=== PATIENT | male | born 2000 | race Two or more races ===

== ENCOUNTER 2025-02-24 15:01 | Inpatient (IN) | payer MEDICAID, OTHER ==
[~2025-02-24] VITALS: Ht 177.8 cm; Wt 105.1 kg
--- NOTE | 2025-02-24 15:30 | ED.PDOC ---
History of Present Illness HPI Comments 24-year-old male with no significant past medical history brought in by private car, referred by Dr. Capellan for evaluation of fatigue, abdominal pain, nausea and vomiting. Patient was found to be tachycardic in the 130s on EKG performed at urgent care, as well as showing ketonuria. Patient states they tested him for diabetes at the urgent Care, and he was told he was not diabetic. Patient notes extreme fatigue over the past 3 weeks, then nausea and vomiting that started about a week ago associated with mid abdominal pain radiating to the left flank. He states he has been unable to keep any food or liquids down. He does note diarrhea several days ago after taking magnesium for constipation. Denies fever or dysuria. Chief Complaint: Chest Pain Time Seen by MD: 15:16 Reviewed Notes: Medications, Allergies Allergies: Coded Allergies: NO KNOWN ALLERGIES (Unverified , 02/24/25) Information Source: Patient Mode of Arrival: Ambulatory Severity: Moderate Timing: Days Duration: Since onset Prehospital treatment: None Past Medical History PAST MEDICAL HISTORY: Denies Surgical History: Denies all surgeries Family History Family History: Reviewed,noncontributory to illness Social History Smoker: Non-Smoker Alcohol: Rarely Drugs: Denies Drug Use Lives In: Home Constitutional: denies: chills, diaphoresis, fatigue, fever, malaise, sweats, weakness, others EENTM: denies: blurred vision, double vision, ear bleeding, ear discharge, ear drainage, ear pain, ear ringing, eye pain, eye redness, hearing loss, mouth pain, mouth swelling, nasal discharge, nose bleeding, nose congestion, nose pain, photophobia, tearing, throat pain, throat swelling, voice changes, others Respiratory: denies: cough, hemoptysis, orthopnea, SOB at rest, shortness of breath, SOB with excertion, stridor, wheezing, others Cardiovascular: reports: chest pain; denies: dizzy spells, diaphoresis, Dyspnea on exertion, edema, irregular heart beat, left arm pain, lightheadedness, palpitations, PND, syncope, others Gastrointestinal: reports: abdominal pain; denies: abdomen distended, blood streaked bowels, constipated, diarrhea, dysphagia, difficulty swallowing, hematemesis, melena, nausea, poor appetite, poor fluid intake, rectal bleeding, rectal pain, vomiting, others Genitourinary: denies: burning, dysuria, flank pain, frequency, hematuria, incontinence, penile discharge, penile sore, pain, testicle pain, testicle swelling, urgency, others Neurological: denies: dizziness, fainting, headache, left sided numbness, left sided weakness, numbness, paresthesia, pre-existing deficit, right sided numbness, right sided weakness, seizure, speech problems, tingling, tremors, weakness, others Musculoskeletal: denies: back pain, gout, joint pain, joint swelling, muscle pain, muscle stiffness, neck pain, others Integumetry: denies: bruises, change in color, change in hair/nails, dryness, laceration, lesions, lumps, rash, wounds, others Allergic/Immunocompromised: denies: Difficulty Healing, Frequent Infections, Hives, Itching, others Hematologic/Lymphatic: denies: anemia, blood clots, easy bleeding, easy bruising, swollen glands, others Endocrine: denies: excessive hunger, excessive sweating, excessive thirst, excessive urination, flushing, intolerance to cold, intolerance to heat, unexpla ined weight gain, unexplained weight loss, others Psychiatric: denies: anxiety, bipolar disorder, depression, hopeless, panic disorder, schizophrenia, sleepless, suicidal, others All Other Systems: Reviewed and Negative Physical Exam General Appearance: Mild Distress HEENT: Other (Pupils and face symmetric. Dry mucous membranes.) Neck: Full Range of Motion, Normal Inspection Respiratory: Lungs Clear, No Accessory Muscle Use, No Respiratory Distress, Normal Breath Sounds Cardiovascular: No Edema, No JVD, Tachycardia Breast Exam: Deferred Gastrointestinal: Epigastric, LUQ, Tenderness Genitalia: Deferred Pelvic: Deferred Rectal: Deferred Extremities: Normal inspection, Normal range of motion, Non-tender, No pedal edema Neurologic: Alert (Oriented x4), Normal Affect, Normal Mood, Other (Ambulatory) Cerebellar Function: NOT DONE Reflexes: NOT DONE Skin: Dry, Pallor, Warm Lymphatic: NOT DONE Was a procedure done? Was a procedure done?: No EKG EKG : Comments Sinus tach, rate 137, normal intervals, normal axis, normal QRS, nonspecific T changes. Differential Dx Considerations may include: Dehydration, sepsis, electrolyte imbalance, enteritis, diverticular disease, colitis, pancreatitis, UTI, other biliary tract disease, DKA, among others X-Ray, Labs, Meds, VS Vital Signs Date Time Temp Pulse Resp B/P (MAP) Pulse Ox O2 Delivery O2 Flow Rate FiO2 02/24/25 20:00 130 02/24/25 18:45 94 Room Air* 0 21 02/24/25 18:41 122 20 96 Room Air* 0 21 02/24/25 18:00 98.7 124 20 127/80 (96) 98 98.7 02/24/25 15:08 137 02/24/25 15:03 98.3 155 20 95/74 95 98.3 Lab Test 02/24/25 19:55 02/24/25 19:40 02/24/25 18:57 02/24/25 18:29 Range/Units POC Glucose 378 H 544 *H 70-106 mg/dl Urine Color Colorless Yellow Urine Clarity Clear Clear Urine pH 5.0 5.0-9.0 Urine Specific Bessie 1.028 1.001-1.035 Urine Protein Negative Negative Urine Ketones 4+ H Negative Urine Blood Negative Negative /uL Urine Nitrite Negative Negative Urine Bilirubin Negative Negative Urine Urobilinogen Normal Negative mg/dL Urine Leukocyte Esterase Negative Negative /uL Urine RBC <1 0 - 3 /hpf Urine Microscopic WBC 0-3 /HPF Urine Squamous Epithelial Cells Few <5 /hpf Urine Bacteria None seen None Seen /hpf Urine Glucose 4+ H Normal mg/dL Blood Gas Specimen Type Arterial Blood Gas Sample Site Left brachial Blood Gas Patient Temperature 37.0 Arterial Blood Date Drawn [id number] Arterial Blood pH 7.267 L 7.350-7.450 Arterial Blood Partial Pressure CO2 15.4 *L 35.0-48.0 mmHg Arterial Blood Partial Pressure O2 99.0 83.0-108.0 mmHg Arterial Blood HCO3 6.9 L 21.0-28.0 mmol/L Arterial Blood Oxygen Saturation 97.5 94.0-98.0 % Arterial Blood Base Excess -16.8 L -2.0-3.0 mmol/L Arterial Blood Oxyhemoglobin 96.5 94.0-98.0 % Arterial Blood Carboxyhemoglobin 0.2 L 0.5-1.5 % Arterial Blood Methemoglobin 0.8 0.0-1.5 % Miles Test N/a Blood Gas Total Hemoglobin 17.40 13.5-17.5 g/dL Blood Gas Modality Room air FiO2 % 21.0 Blood Gas Critical Value Read Back Yes Blood Gas Notified Whom Blood Gas Notified Time [id number] Blood Gas Notified By Test 02/24/25 18:25 02/24/25 15:55 Range/Units Sodium Level 132 L 132 L 136-145 mmol/L Potassium Level 4.2 4.2 3.5-5.1 mmol/L Chloride Level 92 L 91 L 98-107 mmol/L Carbon Dioxide Level < 10 *L < 10 *L 20-31 mmol/L Anion Gap 30.99631 H 31.74279 H 5-15 Blood Urea Nitrogen 10 10 9-23 mg/dL Creatinine 2.04 H 2.02 H 0.700-1.30 mg/dL Glomerular Filtration Rate Calc 46 46 >90 mL/min BUN/Creatinine Ratio 4.9 L 5.0 L 10.0-20.0 Serum Glucose 549 *H 549 *H 74-106 mg/dL Lactic Acid Level 2.9 *H 3.0 *H 0.4-2.0 mmol/L Calcium Level 9.8 10.0 8.7-10.4 mg/dL Phosphorus Level 7.5 H 2.4-5.1 mg/dL Magnesium Level 2.4 1.6-2.6 mg/dL Troponin I High Sensitivity < 3 L < 3 L </=54 ng/L Beta-Hydroxybutyric Acid > 4.500 H < 0.4 mmol/L White Blood Count 16.3 H 4.4-10.8 10^3/uL Red Blood Count 6.06 H 4.5-5.90 10^6/uL Hemoglobin 18.0 H 13.5-17.5 g/dL Hematocrit 54.5 H 41.0-53.0 % Mean Corpuscular Volume 89.9 80.0-100.0 fL Mean Corpuscular Hemoglobin 29.8 28.0-32.0 pg Mean Corpuscular Hemoglobin Concent 33.1 32.0-36.0 g/dL Red Cell Distribution Width 14.6 H 11.8-14.3 % Platelet Count 203 140-450 10^3/uL Mean Platelet Volume 12.5 H 6.9-10.8 fL Neutrophils (%) (Auto) 91.7 H 37.0-80.0 % Lymphocytes (%) (Auto) 4.7 L 10.0-50.0 % Monocytes (%) (Auto) 3.1 0.0-12.0 % Eosinophils (%) (Auto) 0.0 0.0-7.0 % Basophils (%) (Auto) 0.5 0.0-2.0 % Neutrophils # (Auto) 14.9 H 1.6-8.6 10 ^3/uL Lymphocytes # (Auto) 0.8 0.4-5.4 10 ^3/uL Monocytes # (Auto) 0.5 0-1.3 10 ^3/uL Eosinophils # (Auto) 0 0-0.8 10 ^3/uL Basophils # (Auto) 0.1 0-0.2 10 ^3/uL Nucleated Red Blood Cells 0.1 % Prothrombin Time 10.3 9.3-11.8 sec Prothrombin Time INR 0.97 0.9-1.15 Activated Partial Thromboplast Time 27.6 24.5-34.5 SEC Serum Osmolality 332 H 278-298 mOsm/kg Total Bilirubin 0.7 0.2-1.0 mg/dL Aspartate Amino Transferase (AST) 9 L 13-40 U/L Alanine Aminotransferase (ALT) 14 7-40 U/L Alkaline Phosphatase 179 H 46-116 U/L B-Type Natriuretic Peptide 9.71 0-100 pg/mL Total Protein 9.6 H 5.7-8.2 g/dL Albumin 5.4 H 3.2-4.8 g/dL Lipase 37 12-53 U/L Current Medications Medications (Trade) Dose Ordered Sig/Lamont Route Start Time Stop Time Status Last Admin Lactated Ringer's 2,200 ml @ 2,200 mls/hr ONCE ONCE IV 02/24/25 15:30 02/24/25 16:29 DC 02/24/25 16:16 Ondansetron HCl (Zofran) 4 mg ONCE ONCE IV 02/24/25 15:30 02/24/25 15:31 DC 02/24/25 16:13 Pantoprazole Sodium (Protonix) 40 mg ONCE ONCE IV 02/24/25 15:30 02/24/25 15:31 DC 02/24/25 16:14 Sodium Chloride 1,000 ml @ 500 mls/hr Q2H IV 02/24/25 18:45 02/24/25 22:44 8/21/25 20:00 Insulin Human (Reg)/Sodium Chloride 100 ml @ 0.5 mls/hr Q24H IV 02/24/25 18:45 02/24/25 18:55 Diagnostic Test (Pha) (Accu-Chek Comfort Curve T) 1 strip Q90MIN 02/24/25 19:30 02/24/25 21:02 Insulin Human Regular (InsuLIN R) 10 units ONCE ONCE IV 02/24/25 18:45 02/24/25 18:46 DC 02/24/25 18:55 X-Ray, Labs, Meds, VS Comment 24-year-old male with no significant past medical history brought in by private car, referred by Dr. Sloans for evaluation of fatigue, abdominal pain, nausea and vomiting Vitals remarkable for heart rate 155, initial BP 95/74 Exam remarkable for tachycardia, dry mucous membranes and epigastric and left- sided abdominal tenderness Rhythm strip independently interpreted by me: Sinus tach, rate thirty-seven, no ectopy. Chest x-ray IMPRESSION: 1. No acute cardiopulmonary disease. Impression: No acute noncontrast CT abnormality of the abdomen / pelvis. Distal esophageal wall thickening, fever to represent esophagus secondary to emesis. Please correlate with history. Diffuse hepatic steatosis. CBC remarkable for WBC 16.3, hemoglobin 18, hematocrit 54.5, CMP remarkable for sodium 132, chloride 92, CO2 less than 10, creatinine 2.04, glucose 549, anion gap 31, beta hydroxybutyrate greater than 4.5, lactate 3, lipase normal, UA 4+ ketones and glucose Patient treated with the following in the ED: 30 cc/kilogram LR bolus, cefepime 2 g IV, Zofran 4 mg IV, morphine 4 mg IV, regular insulin 10 units IV, started on the DKA protocol On re-evaluation, heart rate is 122, blood pressure 118/82, oxygen saturation 98% on room air, blood glucose is down to be 78, and lactate is down to 2.9 Plan is to admit the patient for treatment of DKA Time of 1ST Reevaluation: 15:41 Reevaluation 1ST: Unchanged Patient Education/Counseling: Diagnosis, Treatment Family Education/Counseling: No Family Present SEPSIS Sepsis Screen Date sepsis recognized/suspect: Feb 24, 2025 Time Sepsis recognized/suspect: 1503 Recent Procedure: No On Antibiotic Therapy: No Respiratory Rate >20: No Heart Rate >90: Yes Temp<36 C (96.8 F) or >38.3 C: No SBP <90 or MAP <65 mmHG: No New Acute Mental Status Change: No Is the patient on CPAP, BIPAP,: No SEPSIS EXCLUSION NOTE: Sepsis reassessment focused exam completed. Date: 02/24/25 Time 21:13 Physician Orders Electrocardigram (02/24/25 15:02) Chest Portable (02/24/25 15:16) Accucheck (02/24/25 15:16) Blood Culture (02/24/25 15:16) Cefepime 1gm/ 50ml (Maxipime 1gm/50ml) (02/24/25 22:00) Notify Md If Map <65 Or Bp<90 (02/24/25 15:16) If Map<65 Start Vasopressor (02/24/25 15:16) Sepsis Reassesment After Fluid (02/24/25 16:16) Ct Ab Pel Wo Con-No Oral Or Iv (02/24/25 15:16) Abg W/ Co-Ox (02/24/25 18:35) Insulin Drip Protocol (02/24/25 ) Sodium Chloride 0.9% (02/24/25 18:45) Sodium Chloride 0.9% (02/24/25 22:45) Sodium Chloride 0.9% (02/25/25 00:45) Insulin Drip 100 Unit/100ml (Myxredlin 1 (02/24/25 18:45) Dextrose 50% Syringe (02/24/25 18:45) Glucose Blood (Accu-Chek Comfort Curve T (02/24/25 19:30) Basic Metabolic Panel (02/25/25 00:35) Basic Metabolic Panel (02/25/25 06:35) Basic Metabolic Panel (02/25/25 12:35) Neurological Assessment (02/24/25 18:35) Vs/Hemodynamics .PER UNIT PROTOCOL (02/24/25 18:35) Insulin Lantus (Glargine) (Lantus) (02/25/25 10:00) Vital Signs Date Time Temp Pulse Resp B/P (MAP) Pulse Ox O2 Delivery O2 Flow Rate FiO2 02/24/25 20:00 130 02/24/25 18:45 94 Room Air* 0 21 02/24/25 18:41 122 20 96 Room Air* 0 21 02/24/25 18:00 98.7 124 20 127/80 (96) 98 98.7 02/24/25 15:08 137 02/24/25 15:03 98.3 155 20 95/74 95 98.3 Laboratory Tests Test 02/24/25 15:55 02/24/25 18:25 Lactic Acid Level 3.0 mmol/L (0.4-2.0) *H 2.9 mmol/L (0.4-2.0) *H White Blood Count 16.3 10^3/uL (4.4-10.8) H Medications Medications Dose Ordered Sig/Lamont Route Start Time Stop Time Status Last Admin Dose Admin Diagnostic Test (Pha) 1 strip Q90MIN 02/24/25 19:30 02/24/25 21:02 Insulin Human (Reg)/Sodium Chloride 100 ml @ 0.5 mls/hr Q24H IV 02/24/25 18:45 02/24/25 18:55 Insulin Human Regular 10 units ONCE ONCE IV 02/24/25 18:45 02/24/25 18:46 DC 02/24/25 18:55 Lactated Ringer's 2,200 ml @ 2,200 mls/hr ONCE ONCE IV 02/24/25 15:30 02/24/25 16:29 DC 02/24/25 16:16 Ondansetron HCl 4 mg ONCE ONCE IV 02/24/25 15:30 02/24/25 15:31 DC 02/24/25 16:13 Pantoprazole Sodium 40 mg ONCE ONCE IV 02/24/25 15:30 02/24/25 15:31 DC 02/24/25 16:14 Sodium Chloride 1,000 ml @ 500 mls/hr Q2H IV 02/24/25 18:45 02/24/25 22:44 02/24/25 20:00 Departure 1 Departure Time of Disposition: 18:30 Impression: Primary Impression: Diabetes mellitus, new onset Additional Impressions: DKA (diabetic ketoacidosis) Sepsis Disposition: ADMITTED INPATIENT [facility]mit to: [facility] Condition: Guarded Critical Care Note Critical Care Time?: Yes (55 min-critical care time only) Critical care comment: Critical care time including multiple bedside re-evaluations, review of lab and imaging studies, and discussion of the case with the admitting provider. Patient is high risk for metabolic and/or hemodynamic decompensation. Stability Stability form required: No Heart Score Heart Score: Heart Score Response (Comments) Value History N/A 0 EKG N/A 0 Age N/A 0 Risk Factors N/A 0 Troponin N/A 0 Total 0 I personally scribed for PATSY VILLANUEVA MD ([email or web address]) on 02/24/25 at 15:31. Electronically submitted by Kushal Figueredo ([email or web address]). PATSY VILLANUEVA MD Feb 24, 2025 15:30
--- NOTE | 2025-02-24 15:59 | DVH ---
CHEST RADIOGRAPH Indication: tachy Technique: Single frontal view of the chest was obtained Comparison: None FINDINGS: Lines and Tubes: None Lungs: No focal consolidation. Pleura: No effusion. No pneumothorax. Cardiomediastinal contours: Unremarkable Bones: No acute osseous abnormality. IMPRESSION: 1. No acute cardiopulmonary disease.
--- NOTE | 2025-02-24 16:10 | DVH ---
CLINICAL HISTORY: diffuse abd pain, not tolerating po TECHNIQUE: CT of the abdomen and pelvis was performed without IV contrast. This exam was performed ac cording to our departmental dose optimization program. Up-to-date CT equipment and radiation dose red uction techniques are utilized as appropriate. CTDI 15.4 DLP 951.8 COMPARISON: None FINDINGS: Abdomen/Pelvis: The spleen, pancreas, adrenal glands, kidneys, gallbladder, bladder, and prostate gland are grossly u nremarkable. There is diffuse hepatic steatosis. The abdominal aorta is normal in course and caliber. There are no significant atherosclerotic calcifi cations. There is no free intraperitoneal air or fluid. There is no enlarged abdominal pelvic lymph node. There is no bowel wall thickening or dilatation. The appendix is normal. Other: The imaged lower thorax demonstrates distal esophageal wall thickening unremarkable. No acute osseous abnormality is evident. Impression: No acute noncontrast CT abnormality of the abdomen / pelvis. Distal esophageal wall thickening, fever to represent esophagus secondary to emesis. Please correlate with history. Diffuse hepatic steatosis.
[2025-02-24 16:11] LABS: Hemoglobin 18.0 g/dL (13.5-17.5); Mean Corpuscular Hemoglobin 29.8 pg (28.0-32.0)
[2025-02-24 16:13] LABS: Hematocrit 54.5 % (41.0-53.0); Mean Corpuscular Volume 89.9 fL (80.0-100.0); Nucleated Red Blood Cells % 0.1 %
[2025-02-24] MEDS: ONDANSETRON HCL 4 MG/2 ML VIAL IV ONE (16:13)
[2025-02-24] MEDS: PANTOPRAZOLE 40 MG/10 ML VIAL INJ IV ONE (16:14)
[2025-02-24] MEDS: LACTATED RINGER'S 2,200 ML IV ONE (16:16)
[2025-02-24 16:24] LABS: INR 0.97 (0.9-1.15); Partial Thromboplastin Time 27.6 SEC (24.5-34.5); Prothrombin Time 10.3 sec (9.3-11.8)
[2025-02-24 16:28] LABS: Alanine Aminotransferase 14 U/L (7-40); Anion Gap 31.00001 (5-15); BUN/Creatinine Ratio 5.0 (10.0-20.0); Bilirubin, Total 0.7 mg/dL (0.2-1.0); Blood Urea Nitrogen 10 mg/dL (9-23); Calcium 10.0 mg/dL (8.7-10.4); Lipase 37 U/L (12-53); Potassium 4.2 mmol/L (3.5-5.1)
[2025-02-24 16:30] LABS: Chloride 91 mmol/L (98-107); Sodium 132 mmol/L (136-145)
[2025-02-24 16:31] LABS: Albumin 5.4 g/dL (3.2-4.8); Alkaline Phosphatase 179 U/L (46-116); Carbon Dioxide < 10 mmol/L (20-31); Glucose 549 mg/dL (74-106); Total Protein 9.6 g/dL (5.7-8.2)
[2025-02-24 16:32] LABS: Lactic Acid w/Reflex 3.0 mmol/L (0.4-2.0)
[2025-02-24 18:41] VITALS: PULSE 122; RESP 20; O2SAT 96
[2025-02-24] MEDS ORDERED: DEXTROSE (50%) 50ML SYRG IV PRN (18:45)
[2025-02-24] MEDS: INSULIN LANTUS (GLARGINE) 1 /0.01ml (100units/ml) SC ONE (18:48)
[2025-02-24] MEDS: InsuLIN REG 1unit/0.01ml Soln (100units/ml) IV ONE (18:55)
[2025-02-24] MEDS: SODIUM CHLORIDE 0.9% 1,000 ML IV SCH ×2 (18:55→22:45)
[2025-02-24] MEDS: INSULIN DRIP 100 UNIT/100ML 100 ML IV SCH (18:55)
[2025-02-24 18:57] LABS: Magnesium 2.4 mg/dL (1.6-2.6)
[2025-02-24 19:01] LABS: Potassium 4.2 mmol/L (3.5-5.1)
[2025-02-24 19:02] LABS: Anion Gap 30.00001 (5-15); Calcium 9.8 mg/dL (8.7-10.4)
[2025-02-24 19:07] LABS: BUN/Creatinine Ratio 4.9 (10.0-20.0); Blood Urea Nitrogen 10 mg/dL (9-23)
[2025-02-24 19:08] LABS: Chloride 92 mmol/L (98-107); Sodium 132 mmol/L (136-145)
[2025-02-24 19:09] LABS: Carbon Dioxide < 10 mmol/L (20-31); Glucose 549 mg/dL (74-106)
[2025-02-24 19:20] LABS: Base Excess -16.8 mmol/L (-2.0-3.0)
[2025-02-24] MEDS: ACCU-CHEK COMFORT CURVE STRIP VI SCH (19:59)
[2025-02-24 20:23] LABS: Urine Protein, UAD Negative (Negative)
[2025-02-24] MEDS: CEFEPIME 1GM/ 50ML 50 ML IV SCH (22:00)
[2025-02-25] VITALS (44 sets, daily range): BP systolic 108–139; BP diastolic 62–80; PULSE 69–105; RESP 10–22; TEMP 97.7–98.5; O2SAT 94–98
[2025-02-25] MEDS ORDERED: ONDANSETRON HCL 4 MG/2 ML VIAL IV PRN
[2025-02-25] MEDS: SODIUM CHLORIDE 0.9% 1,000 ML IV SCH (00:51)
[2025-02-25 00:53] LABS: Potassium 3.9 mmol/L (3.5-5.1); Sodium 141 mmol/L (136-145)
[2025-02-25 00:54] LABS: Anion Gap 23 (5-15)
[2025-02-25 00:55] LABS: Calcium 8.9 mg/dL (8.7-10.4)
[2025-02-25 00:59] LABS: BUN/Creatinine Ratio 5.0 (10.0-20.0); Carbon Dioxide 11 mmol/L (20-31); Chloride 107 mmol/L (98-107)
[2025-02-25 01:06] LABS: Blood Urea Nitrogen 8 mg/dL (9-23); Glucose 247 mg/dL (74-106)
--- NOTE | 2025-02-25 01:20 | DVHHPRES ---
History of Present Illness Resident Creating Document: LINDA MENDEZ RESIDENT History of Present Illness This is a 24-year-old male with past medical history of hypertension and asthma noncompliant on his medications, newly diagnosed type 1 diabetes mellitus. Patient presented to the ED with chief complain of extreme fatigue, an acute epigastric pain associated with dry mouth now and vomit. Patient states that for the past day he started feeling more fatigued than usual and he started developing acute abdominal pain in the epigastric region radiating up to the chest associated with thirsty, dry mouth, nausea and vomiting. Upon admission blood glucose was 549 with an anion gap of 31 any carbon dioxide of less than 10. ABG showed a pH of 7.26, pCO2 of 15.4, HC03 of 6.9 and PO2 of 99 consistent with severe metabolic acidosis with elevated anion gap consistent with DKA. Patient was started on IV fluids, insulin drip, potassium replacement and e lectrolyte monitoring cessation. Patient will be admitted to ICU for further assessment and management. Past medical history: Hypertension, asthma, no medication compliance Home medications: Noncompliant Surgical history: Social history: Denies cigarette smoking but admitted marijuana use and stated that quit years ago, occasional alcohol intake Cardiovascular: HTN Pulmonary: Asthma Endocrine: Diabetes Past Surgical History: None Family History: None Smoke: No ALCOHOL: occassional Drugs: Marijuana Lives: with Family Domestic Violence: Neg Review of Systems Constitutional: Yes: Weakness, Malaise; No: Fever, Chills, Sweats, Other Eyes: No: Pain, Vision change, Conjunctivae inflammation, Eyelid inflammation, Other, Redness ENT: No: Ear pain, Ear discharge, Nose pain, Nose discharge, Nose congestion, Mouth pain, Mouth swelling, Throat pain, Throat swelling, Other Respiratory: No: Cough, Dry, Shortness of breath, SOB with excertion, Wheezing, Hemoptysis, Pleuritic Pain, Sputum, Wheezing, Other Cardiovascular: No: Chest Pain, Palpitations, Orthopnea, Paroxysmal Noc. Dyspnea, Edema, Lt Headedness, Other Gastrointestinal: Nausea, Vomiting, Abdominal Pain Genitourinary: No Dysuria, No Frequency, No Incontinence, No Hematuria, No Retention, No Other Musculoskeletal: No: other, neck pain, shoulder pain, arm pain, back pain, hand pain, leg pain, foot pain Skin: No: Rash, Lesions, Jaundice, Bruising, Other Neurological: Weakness; No: Numbness, Incoordination, Change in speech, Confusion, Seizures, Other Allergies: Coded Allergies: NO KNOWN ALLERGIES (Unverified , 02/24/25) Medications Current Medications Medications Dose Ordered Sig/Lamont Route Start Time Stop Time Status Last Admin Dose Admin Cefepime HCl 50 ml @ 12.5 mls/hr Q8HR IV 02/24/25 22:00 Sodium Chloride 1,000 ml @ 250 mls/hr Q4H IV 02/24/25 22:45 02/25/25 00:44 02/24/25 22:45 250 MLS/HR Sodium Chloride 1,000 ml @ 150 mls/hr Q6H40M IV 02/25/25 00:45 Insulin Human (Reg)/Sodium Chloride 100 ml @ 0.5 mls/hr Q24H IV 02/24/25 18:45 02/24/25 18:55 6 MLS/HR Dextrose 50 ml UD PRN IV 02/24/25 18:45 Diagnostic Test (Pha) 1 strip Q90MIN 02/24/25 19:30 02/24/25 22:30 1 STRIP Insulin Glargine 15 units DAILY SC 02/25/25 10:00 Acetaminophen 650 mg Q6HP PRN PO 02/25/25 00:00 UNV Acetaminophen/ Hydrocodone Bitart 1 tab Q4HP PRN PO 02/25/25 00:00 UNV Ondansetron HCl 4 mg Q4HP PRN IV 02/25/25 00:00 UNV Exam Vital Signs Vital Signs Date Time Temp Pulse Resp B/P (MAP) Pulse Ox O2 Delivery O2 Flow Rate FiO2 02/24/25 20:00 119 20 118/82 (94) 98 02/24/25 18:45 Room Air* 0 21 02/24/25 18:00 98.7 98.7 General Appearance: Alert, Oriented X3, Cooperative, mild distress HEENT: Atraumatic, PERRLA, EOMI, Other (Dehydrated) Respiratory: Clear to auscultation, Normal air movement Cardiovascular: Regular rate (Sinus tachycardia), Normal S1, Normal S2, No murmurs Abdominal: Normal bowel sounds, Soft, Other (There is mild tenderness to pa lpation in the epigastric region) Extremities: No clubbing, No cyanosis, No edema, Normal pulses, No tende rness/swelling Skin: No rashes, No breakdown, No significant lesion Neuro: Normal gait, Normal speech, Strength at 5/5 X4 ext, Normal tone, Sensation intact, Cranial nerves 3-12 NL, Reflexes 2+ Psych/Mental Status: Mental status NL, Mood NL Labs/Xrays Labs Test 02/24/25 22:51 02/24/25 19:40 02/24/25 18:57 02/24/25 18:25 Range/Units POC Glucose 259 H 70-106 mg/dl Urine Color Colorless Yellow Urine Clarity Clear Clear Urine pH 5.0 5.0-9.0 Urine Specific [place] 1.028 1.001-1.035 Urine Protein Negative Negative Urine Ketones 4+ H Negative Urine Blood Negative Negative /uL Urine Nitrite Negative Negative Urine Bilirubin Negative Negative Urine Urobilinogen Normal Negative mg/dL Urine Leukocyte Esterase Negative Negative /uL Urine RBC <1 0 - 3 /hpf Urine Microscopic WBC 0-3 /HPF Urine Squamous Epithelial Cells Few <5 /hpf Urine Bacteria None seen None Seen /hpf Urine Glucose 4+ H Normal mg/dL Blood Gas Specimen Type Arterial Blood Gas Sample Site Left brachial Blood Gas Patient Temperature 37.0 Arterial Blood Date Drawn [id number] Arterial Blood pH 7.267 L 7.350-7.450 Arterial Blood Partial Pressure CO2 15.4 *L 35.0-48.0 mmHg Arterial Blood Partial Pressure O2 99.0 83.0-108.0 mmHg Arterial Blood HCO3 6.9 L 21.0-28.0 mmol/L Arterial Blood Oxygen Saturation 97.5 94.0-98.0 % Arterial Blood Base Excess -16.8 L -2.0-3.0 mmol/L Arterial Blood Oxyhemoglobin 96.5 94.0-98.0 % Arterial Blood Carboxyhemoglobin 0.2 L 0.5-1.5 % Arterial Blood Methemoglobin 0.8 0.0-1.5 % Miles Test N/a Blood Gas Total Hemoglobin 17.40 13.5-17.5 g/dL Blood Gas Modality Room air FiO2 % 21.0 Blood Gas Critical Value Read Back Yes Blood Gas Notified Whom Blood Gas Notified Time [id number] Blood Gas Notified By Sodium Level 132 L 136-145 mmol/L Potassium Level 4.2 3.5-5.1 mmol/L Chloride Level 92 L 98-107 mmol/L Carbon Dioxide Level < 10 *L 20-31 mmol/L Anion Gap 30.99042 H 5-15 Blood Urea Nitrogen 10 9-23 mg/dL Creatinine 2.04 H 0.700-1.30 mg/dL Glomerular Filtration Rate Calc 46 >90 mL/min BUN/Creatinine Ratio 4.9 L 10.0-20.0 Serum Glucose 549 *H 74-106 mg/dL Lactic Acid Level 2.9 *H 0.4-2.0 mmol/L Calcium Level 9.8 8.7-10.4 mg/dL Phosphorus Level 7.5 H 2.4-5.1 mg/dL Magnesium Level 2.4 1.6-2.6 mg/dL Troponin I High Sensitivity < 3 L </=54 ng/L Beta-Hydroxybutyric Acid > 4.500 H < 0.4 mmol/L Test 02/24/25 15:55 Range/Units White Blood Count 16.3 H 4.4-10.8 10^3/uL Red Blood Count 6.06 H 4.5-5.90 10^6/uL Hemoglobin 18.0 H 13.5-17.5 g/dL Hematocrit 54.5 H 41.0-53.0 % Mean Corpuscular Volume 89.9 80.0-100.0 fL Mean Corpuscular Hemoglobin 29.8 28.0-32.0 pg Mean Corpuscular Hemoglobin Concent 33.1 32.0-36.0 g/dL Red Cell Distribution Width 14.6 H 11.8-14.3 % Platelet Count 203 140-450 10^3/uL Mean Platelet Volume 12.5 H 6.9-10.8 fL Neutrophils (%) (Auto) 91.7 H 37.0-80.0 % Lymphocytes (%) (Auto) 4.7 L 10.0-50.0 % Monocytes (%) (Auto) 3.1 0.0-12.0 % Eosinophils (%) (Auto) 0.0 0.0-7.0 % Basophils (%) (Auto) 0.5 0.0-2.0 % Neutrophils # (Auto) 14.9 H 1.6-8.6 10 ^3/uL Lymphocytes # (Auto) 0.8 0.4-5.4 10 ^3/uL Monocytes # (Auto) 0.5 0-1.3 10 ^3/uL Eosinophils # (Auto) 0 0-0.8 10 ^3/uL Basophils # (Auto) 0.1 0-0.2 10 ^3/uL Nucleated Red Blood Cells 0.1 % Prothrombin Time 10.3 9.3-11.8 sec Prothrombin Time INR 0.97 0.9-1.15 Activated Partial Thromboplast Time 27.6 24.5-34.5 SEC Serum Osmolality 332 H 278-298 mOsm/kg Total Bilirubin 0.7 0.2-1.0 mg/dL Aspartate Amino Transferase (AST) 9 L 13-40 U/L Alanine Aminotransferase (ALT) 14 7-40 U/L Alkaline Phosphatase 179 H 46-116 U/L B-Type Natriuretic Peptide 9.71 0-100 pg/mL Total Protein 9.6 H 5.7-8.2 g/dL Albumin 5.4 H 3.2-4.8 g/dL Lipase 37 12-53 U/L SEPSIS Sepsis Screen Date sepsis recognized/suspect: Feb 24, 2025 Time Sepsis recognized/suspect: 1842 Recent Procedure: No On Antibiotic Therapy: No Respiratory Rate >20: No Heart Rate >90: No Temp<36 C (96.8 F) or >38.3 C: No SBP <90 or MAP <65 mmHG: No New Acute Mental Status Change: No Is the patient on CPAP, BIPAP,: No Physician Orders Abg W/ Co-Ox (02/24/25 18:35) Insulin Drip Protocol (02/24/25 ) Sodium Chloride 0.9% (02/24/25 22:45) Sodium Chloride 0.9% (02/25/25 00:45) Insulin Drip 100 Unit/100ml (Myxredlin 1 (02/24/25 18:45) Dextrose 50% Syringe (02/24/25 18:45) Glucose Blood (Accu-Chek Comfort Curve T (02/24/25 19:30) Basic Metabolic Panel (02/25/25 00:35) Basic Metabolic Panel (02/25/25 06:35) Basic Metabolic Panel (02/25/25 12:35) Neurological Assessment (02/24/25 18:35) Vs/Hemodynamics .PER UNIT PROTOCOL (02/24/25 18:35) Insulin Lantus (Glargine) (Lantus) (02/25/25 10:00) Admit (02/24/25 23:54) Code Status (02/24/25:54) Vital Signs .PER UNIT PROTOCOL (02/24/25 23:54) Review Orders With Adm. (02/24/25 23:54) Encourage Activity As Tolerate (02/24/25 23:54) Npo (Nothing By Mouth) Diet (02/25/25 Breakfast) Acetaminophen Tablet (Tylenol Tablet) (02/25/25 00:00) Notify Md Of Changes From Base (02/24/25 23:54) Advance Directive (02/24/25 23:54) Basic Metabolic Panel (02/24/25:54) Urinalysis (02/24/25:54) Complete Blood Count (02/24/25:54) Lipid Panel (02/24/25 23:54) Patient Condition (02/24/25 23:54) Allergies (02/24/25 23:54) Hydrocodone-Acet 5/325mg Tab ([place] 5/32 (02/25/25 00:00) Ondansetron Hcl (Zofran) (02/25/25 00:00) Drug Screen (02/24/25 23:54) Hemoglobin A1c (02/24/25 23:54) Potassium (02/24/25 23:58) Potassium Chl 20meq/100ml (02/25/25 00:00) Vital Signs Date Time Temp Pulse Resp B/P (MAP) Pulse Ox O2 Delivery O2 Flow Rate FiO2 02/24/25 20:00 119 20 118/82 (94) 98 02/24/25 20:00 130 02/24/25 18:45 94 Room Air* 0 21 02/24/25 18:41 122 20 96 Room Air* 0 21 02/24/25 18:00 98.7 124 20 127/80 (96) 98 98.7 Laboratory Tests Test 02/24/25 15:55 02/24/25 18:25 Lactic Acid Level 3.0 mmol/L (0.4-2.0) *H 2.9 mmol/L (0.4-2.0) *H White Blood Count 16.3 10^3/uL (4.4-10.8) H Medications Medications Dose Ordered Sig/Lamont Route Start Time Stop Time Status Last Admin Dose Admin Diagnostic Test (Pha) 1 strip Q90MIN 02/24/25 19:30 02/24/25 22:30 1 STRIP Insulin Human (Reg)/Sodium Chloride 100 ml @ 0.5 mls/hr Q24H IV 02/24/25 18:45 02/24/25 18:55 6 MLS/HR Insulin Human Regular 10 units ONCE ONCE IV 02/24/25 18:45 02/24/25 18:46 DC 02/24/25 18:55 10 UNITS Lactated Ringer's 2,200 ml @ 2,200 mls/hr ONCE ONCE IV 02/24/25 15:30 02/24/25 16:29 DC 02/24/25 16:16 2,200 MLS/HR Ondansetron HCl 4 mg ONCE ONCE IV 02/24/25 15:30 02/24/25 15:31 DC 02/24/25 16:13 4 MG Pantoprazole Sodium 40 mg ONCE ONCE IV 02/24/25 15:30 02/24/25 15:31 DC 02/24/25 16:14 40 MG Sodium Chloride 1,000 ml @ 250 mls/hr Q4H IV 02/24/25 22:45 02/25/25 00:44 02/24/25 22:45 250 MLS/HR Sodium Chloride 1,000 ml @ 500 mls/hr Q2H IV 02/24/25 18:45 02/24/25 22:44 DC 02/24/25 20:00 500 MLS/HR Assessment/Plan Assessment/Plan Assessment/plan Acute DKA Newly diagnosed type 1 diabetes with complicated acute DKA Severe metabolic acidosis with elevated anion gap due to above History of hypertension History of asthma Plan -admit patient to ICU/[facility] due to acute DKA -on admission patient had a blood glucose of 549 with an anion gap of 31 any carbon dioxide of less than 10. ABG showed a pH of 7.26, pCO2 of 15.4, HC03 of 6.9 and PO2 of 99 consistent with severe metabolic acidosis with elevated anion gap. -patient was started on IV fluids -patient was started on insulin drip -potassium replacement with pertinent electrolyte monitoring -we will switch IV fluids to D5 W/0.45% once blood glucose drops to the 200s if anion gap still elevated -patient received IV antibiotics in the ED -monitor patient vitals closely Goals of care discussed with the patient at bedside, full code Plan discussed with Dr. Bonilla Plan discussed with: Patient My Orders Orders - LINDA MENDEZ Procedure Category Date Status Time Admit ADMIT 02/24/25 Transmitted 23:54 Code Status CODE 02/24/25 Transmitted 23:54 Vital Signs [facility] 02/24/25 In Process 23:54 Review Orders With JERRI 02/24/25 In Process Adm.Md 23:54 Encourage Activity As JERRI 02/24/25 In Process Tolerate 23:54 Npo (Nothing By DIET 02/25/25 Transmitted Mouth) Diet Breakfast Acetaminophen Tablet PHA 02/25/25 Logged (Tylenol Tablet) 00:00 Notify Of Changes [facility] 02/24/25 In Process From Base 23:54 Advance Directive [facility] 02/24/25 In Process 23:54 Basic Metabolic Panel LAB 02/24/25 Logged 23:54 Urinalysis LAB 02/24/25 Logged 23:54 Complete Blood Count LAB 02/24/25 Logged 23:54 Lipid Panel LAB 02/24/25 Logged 23:54 Patient Condition ORDERS 02/24/25 Transmitted 23:54 Allergies [facility] 02/24/25 In Process 23:54 Hydrocodone-Acet PHA 02/25/25 Logged 5/325mg Tab ([place] 00:00 Ondansetron Hcl PHA 02/25/25 Logged (Zofran) 00:00 Drug Screen LAB 02/24/25 Logged 23:54 Hemoglobin A1c LAB 02/24/25 Logged 23:54 Potassium LAB 02/24/25 Logged 23:58 Potassium Chl PHA 02/25/25 Logged 20meq/100ml 00:00 Date of Service: Feb 25, 2025 Billing Provider: LINDA MENDEZ Common Visit Codes: 77221-QFUTITR INP/OBS CARE (HIGH) Secondary Visit Codes: 90425-[id number] CARE PLAN 30 MINUTES LINDA MENDEZ Feb 25, 2025 01:20
[2025-02-25] MEDS: D5W/SOD CHL 0.45% 1,000 ML IV ONE (03:07)
[2025-02-25] MEDS: HYDROcodone-ACET 5/325MG TAB PO PRN (03:10)
[2025-02-25 03:25] LABS: Alanine Aminotransferase 11 U/L (7-40); Albumin 4.4 g/dL (3.2-4.8); Anion Gap 20 (5-15); BUN/Creatinine Ratio 4.2 (10.0-20.0); Bilirubin, Total 0.6 mg/dL (0.2-1.0); Potassium 3.7 mmol/L (3.5-5.1); Sodium 142 mmol/L (136-145); Total Protein 7.7 g/dL (5.7-8.2)
[2025-02-25 03:39] LABS: Alkaline Phosphatase 132 U/L (46-116); Blood Urea Nitrogen 6 mg/dL (9-23); Calcium 8.7 mg/dL (8.7-10.4); Carbon Dioxide 12 mmol/L (20-31); Chloride 110 mmol/L (98-107); Glucose 194 mg/dL (74-106)
--- NOTE | 2025-02-25 06:43 | ECG ---
[facility] Test Date: 2025-02-24 Test Time: 15:08:33 Pat Name: APOLINAR RODRIGUEZ Department: ED Room: 0298 Gender: M Media Director: ER : 2000 Requested By: PATSY PELAYO Order Number: [id number] Reading MD: Boyd Newman Measurements Intervals [place] Rate: 137 P: 88 MA: 136 QRS: 141 QRSD: 84 T: 23 QT: 297 QTc: 449 Interpretive Statements Sinus tachycardia Left posterior fascicular block Electronically Signed On 03-01-2025 14:23:04 PDT by Boyd Newman Please click the below link to view image of tracing.
[2025-02-25] MEDS: POTASSIUM CHL 20MEQ/100ML 100 ML IV SCH ×2 (06:45)
[2025-02-25 06:56] LABS: Hematocrit 45.9 % (41.0-53.0); Hemoglobin 15.5 g/dL (13.5-17.5); Mean Corpuscular Hemoglobin 29.7 pg (28.0-32.0); Mean Corpuscular Volume 87.8 fL (80.0-100.0); Nucleated Red Blood Cells % 0.1 %
[2025-02-25 06:59] LABS: Anion Gap 20 (5-15); Potassium 3.8 mmol/L (3.5-5.1); Sodium 141 mmol/L (136-145)
[2025-02-25 07:01] LABS: Calcium 9.5 mg/dL (8.7-10.4)
[2025-02-25 07:02] LABS: Carbon Dioxide 13 mmol/L (20-31); Chloride 108 mmol/L (98-107)
[2025-02-25 07:06] LABS: BUN/Creatinine Ratio 4.0 (10.0-20.0)
[2025-02-25 07:10] LABS: Blood Urea Nitrogen 6 mg/dL (9-23); Cholesterol 344 mg/dL (< 200); Glucose 232 mg/dL (74-106); HDL Cholesterol 32 mg/dL (40-59); Triglycerides 693 mg/dL (< 150)
[2025-02-25 08:32] LABS: Potassium 4.2 mmol/L (3.5-5.1); Sodium 141 mmol/L (136-145)
[2025-02-25 08:33] LABS: Anion Gap 21 (5-15); Calcium 9.6 mg/dL (8.7-10.4)
[2025-02-25 08:36] LABS: Carbon Dioxide 12 mmol/L (20-31); Chloride 108 mmol/L (98-107)
[2025-02-25 08:38] LABS: BUN/Creatinine Ratio 6.3 (10.0-20.0)
[2025-02-25 08:44] LABS: Blood Urea Nitrogen 9 mg/dL (9-23); Glucose 231 mg/dL (74-106)
[2025-02-25] MEDS: INSULIN LANTUS (GLARGINE) 1 /0.01ml (100units/ml) SC SCH (10:42)
[2025-02-25] MEDS: D5W/SOD CHL 0.45% 1,000 ML IV SCH (11:15)
--- NOTE | 2025-02-25 11:45 | DVHPNRES ---
Progress Note Date Seen: Feb 25, 2025 Resident Creating Document: JJ ORNELAS RESIDENT Medical Necessity Reason Pt with a Central, PICC or Fol: No Subjective Review of Systems Ángel Guido is a 24-year-old male with past medical history of hypertension and asthma noncompliant on his medications, newly diagnosed type 1 diabetes mellitus. Patient presented to the ED with chief complain of extreme fatigue, an acute epigastric pain associated with dry mouth now and vomit. Patient reported he has been having fatigue for last 2 months, feeling more dehydrated, more thirsty but over the past 2 weeks the fatigue has been worsened. Patient states that for the past day he started feeling more fatigued than usual and he started developing acute abdominal pain in the epigastric region radiating up to the chest associated with thirsty, dry mouth, nausea and vomiting. Upon admission blood glucose was 549 with an anion gap of 31 any carbon dioxide of less than 10. ABG showed a pH of 7.26, pCO2 of 15.4, HC03 of 6.9 and PO2 of 99 consistent with severe metabolic acidosis with elevated anion gap consistent with DKA. Patient was started on IV fluids, insulin drip, potassium replacement and electrolyte monitoring cessation. PMH: Childhood asthma PSH: None Family history: Noncontributory Social history: Lives at home. Social drinking but denies alcohol, smoking other drug abuse. Allergies: No known allergies Home medications: None Patient seen and examined at the bedside. Patient reported improvement in his fatigue and other symptoms since admission, reported no new complaints except mild tiredness at this time. Overnight events reviewed. Continuously monitor lab. Blood cultures negative. Objective vital signs Vital Sign Date Time Temp Pulse Resp B/P (MAP) Pulse Ox O2 Delivery O2 Flow Rate FiO2 02/25/25 11:00 84 13 115/71 (86) 97 02/25/25 10:00 Room Air* 0 21 02/25/25 09:50 97.9 97.9 Total Intake and Output 02/24/25 02/24/25 02/25/25 15:00 23:00 07:00 Intake Total 4210 ml 210 ml Output Total 700 ml Balance 3510 ml 210 ml medications Current Medications Medications Dose Ordered Sig/Lamont Route Start Time Stop Time Status Last Admin Dose Admin Cefepime HCl 50 ml @ 12.5 mls/hr Q8HR IV 02/24/25 22:00 02/25/25 06:15 12.5 MLS/HR Insulin Human (Reg)/Sodium Chloride 100 ml @ 0.5 mls/hr Q24H IV 02/24/25 18:45 02/24/25 18:55 6 MLS/HR Dextrose 50 ml UD PRN IV 02/24/25 18:45 Diagnostic Test (Pha) 1 strip Q90MIN 02/24/25 19:30 02/25/25 10:43 1 STRIP Insulin Glargine 15 units DAILY SC 02/25/25 10:00 02/25/25 10:42 15 UNITS Acetaminophen 650 mg Q6HP PRN PO 02/25/25 00:00 Acetaminophen/ Hydrocodone Bitart 1 tab Q4HP PRN PO 02/25/25 00:00 02/25/25 08:08 1 TAB Ondansetron HCl 4 mg Q4HP PRN IV 02/25/25 00:00 Dextrose/Sodium Chloride 1,000 ml @ 150 mls/hr Q6H40M IV 02/25/25 11:15 UNV Examination Pt is lying on bed General Appearance: Alert, Oriented X3, Cooperative, Not in acute distress HEENT: Atraumatic, Mucous membranes dry Respiratory: Clear to auscultation, Normal air movement, No added sounds Cardiovascular: Regular rate, Normal S1, Normal S2, No murmurs Abdominal: Active bowel sounds, Soft, no distention, no tenderness Extremities: No edema, Normal pulses, No tenderness/swelling Skin: No Significant rash, except past surgical scars Neuro: Normal speech, sensorimotor deficits none Psych/Mental Status: Mental status NL, Mood NL Nurse was there as urogynecology physician during examination laboratory and microbiology Laboratory Tests 02/25/25 05:38 Test 02/25/25 05:38 Range/Units Serum Glucose 231 H 74-106 mg/dL Labs and/or images reviewed: Labs reviewed by me, Image(s) reviewed by me Problem List/Assessment/Plan Problem List/Assessment/Plan CRM ARCH[facility] # ? Hypovolemic shock likely from dehydration-resolving -given 2 bags of LR -switched to D5W half NS 150 mL/hour # Dyslipidemia -healthy lifestyle modifications RS # acute hypercapnic respiratory failure-improved # Hx of Asthma -monitor Respironics GI/Liver # intractable nausea and vomiting likely from DKA -given 2 bags of LR -switched to D5W half NS 150 mL/hour # Diffuse hepatic steatosis.-evident on CT abdominal pelvis /Kidney # BARBARA likely due to VMN -monitor lab -avoid nephrotoxic agents -given 2 bags of LR -switched to D5W half NS 150 mL/hour Endo/Metabolic # Severe dehydration from DKA # DKA # Newly diagnosed type 1 diabetes with complicated acute DKA # Severe AG metabolic acidosis # Hypokalemia 2/2 above # Pseudohyponatremia -ICU status -HB A1c more than 14 -ABG findings pH of 7.26, pCO2 of 15.4, HC03 of 6.9 and PO2 of 99 -patient was started on IV fluids, -switched to D5W half NS 150 mL/hour -patient was started on insulin drip -potassium replacement with pertinent electrolyte monitoring -repeat BMP q.6 hours MSK Heme-Onc # Reactive leukocytosis from DKA/dehydration--monitor lab for now Drip Insulin Drip GI PPX: Protonix VTE ppx: Lovenox Diet: Npo for now Goals of care addressed with the patient for more than 27 minutes: Full code status Critical care time spent more than 113 minutes Case discussed with Dr. Murrieta regarding insulin drip and transition. Plan discussed with: Patient, Other (rn) My Orders My Orders Orders - JJ ORNELAS RESIDENT Procedure Category Date Status Time D5w/Sod Chl 0.45% PHA 02/25/25 In Process (D5w 1/2ns) 11:15 Drug Screen LAB 02/25/25 Logged 11:28 Pantoprazole PHA 02/25/25 Logged (Protonix) 11:45 Enoxaparin Sodium PHA 02/26/25 Logged (Lovenox) 10:00 Enoxaparin Sodium PHA 02/25/25 Logged (Lovenox) 11:45 JJ ORNELAS RESIDENT Feb 25, 2025 11:45
[2025-02-25 13:25] LABS: Chloride 109 mmol/L (98-107); Potassium 4.0 mmol/L (3.5-5.1); Sodium 143 mmol/L (136-145)
[2025-02-25 13:26] LABS: Anion Gap 16 (5-15); Calcium 9.3 mg/dL (8.7-10.4)
[2025-02-25 13:27] LABS: Carbon Dioxide 18 mmol/L (20-31)
[2025-02-25 13:32] LABS: BUN/Creatinine Ratio 4.7 (10.0-20.0)
[2025-02-25 13:35] LABS: Blood Urea Nitrogen 6 mg/dL (9-23); Glucose 231 mg/dL (74-106)
[2025-02-25] MEDS: ENOXAPARIN SOD 40 MG/0.4 ML SYRINGE SC ONE (13:50)
[2025-02-25] MEDS: PANTOPRAZOLE 40 MG/10 ML VIAL INJ IV SCH (13:50)
[2025-02-25] MEDS: ACETAMINOPHEN 325 MG TAB PO PRN (13:55)
[2025-02-25 19:07] LABS: Sodium 145 mmol/L (136-145)
[2025-02-25 19:08] LABS: Anion Gap 17 (5-15); Calcium 9.4 mg/dL (8.7-10.4); Carbon Dioxide 20 mmol/L (20-31)
[2025-02-25 19:13] LABS: BUN/Creatinine Ratio 4.2 (10.0-20.0)
[2025-02-25 19:20] LABS: Blood Urea Nitrogen 5 mg/dL (9-23); Chloride 108 mmol/L (98-107); Glucose 173 mg/dL (74-106); Potassium 3.1 mmol/L (3.5-5.1)
[2025-02-26] VITALS (24 sets, daily range): BP systolic 111–146; BP diastolic 66–87; PULSE 70–107; RESP 9–19; TEMP 98.1–98.6; O2SAT 96–99
[2025-02-26 01:09] LABS: Chloride 107 mmol/L (98-107); Sodium 144 mmol/L (136-145)
[2025-02-26 01:10] LABS: Anion Gap 17 (5-15); Calcium 9.0 mg/dL (8.7-10.4)
[2025-02-26 01:12] LABS: Carbon Dioxide 20 mmol/L (20-31); Potassium 3.0 mmol/L (3.5-5.1)
[2025-02-26 01:23] LABS: BUN/Creatinine Ratio 4.0 (10.0-20.0); Blood Urea Nitrogen < 5 mg/dL (9-23); Glucose 193 mg/dL (74-106)
[2025-02-26] MEDS: D5W/SOD CHL 0.45%/KCL 20MEQ 1,000 ML IV SCH (02:10)
[2025-02-26] MEDS: POTASSIUM CHL 20MEQ/100ML 100 ML IV SCH ×3 (02:10→21:10)
[2025-02-26] MEDS: INSULIN DRIP 100 UNIT/100ML 100 ML IV SCH ×4 (02:23→12:19)
[2025-02-26] MEDS ORDERED: DEXTROSE (50%) 50ML SYRG IV PRN ×3 (04:15→17:15)
[2025-02-26] MEDS ORDERED: ACCU-CHEK COMFORT CURVE STRIP VI SCH (04:30)
[2025-02-26 08:58] LABS: Hematocrit 47.2 % (41.0-53.0); Hemoglobin 15.8 g/dL (13.5-17.5); Mean Corpuscular Hemoglobin 29.9 pg (28.0-32.0); Mean Corpuscular Volume 89.1 fL (80.0-100.0); Nucleated Red Blood Cells % 0.1 %
[2025-02-26] MEDS: ENOXAPARIN SOD 40 MG/0.4 ML SYRINGE SC SCH (09:06)
[2025-02-26 09:10] LABS: Anion Gap 14 (5-15); Calcium 9.4 mg/dL (8.7-10.4); Carbon Dioxide 23 mmol/L (20-31)
[2025-02-26 09:11] LABS: Chloride 108 mmol/L (98-107); Potassium 2.9 mmol/L (3.5-5.1); Sodium 145 mmol/L (136-145)
[2025-02-26 09:23] LABS: BUN/Creatinine Ratio 4.3 (10.0-20.0); Blood Urea Nitrogen < 5 mg/dL (9-23); Glucose 112 mg/dL (74-106)
[2025-02-26] MEDS: POTASSIUM CHL 20MEQ/100ML 400 ML IV ONE (10:10)
[2025-02-26 12:07] LABS: Anion Gap 14 (5-15); Calcium 9.3 mg/dL (8.7-10.4); Carbon Dioxide 22 mmol/L (20-31)
[2025-02-26 12:08] LABS: Chloride 109 mmol/L (98-107); Potassium 3.1 mmol/L (3.5-5.1); Sodium 145 mmol/L (136-145)
[2025-02-26 12:17] LABS: BUN/Creatinine Ratio 4.3 (10.0-20.0); Blood Urea Nitrogen < 5 mg/dL (9-23); Glucose 124 mg/dL (74-106)
[2025-02-26] MEDS: ACCU-CHEK COMFORT CURVE STRIP VI SCH ×3 (13:36→20:26)
--- NOTE | 2025-02-26 15:08 | DVHPN2 ---
Subjective The patient seen and examined at bedside. No complains today. Reviewed: Care Plan, H&P, Labs, Medications, Previous Orders, Radiology Changes from previous H/P or p: No Changes Eyes: No Pain, No Vision change, No Conjunctivae inflammation, No Eyelid inflammation, No Other, No Redness ENT: No Ear pain, No Ear discharge, No Nose pain, No Nose discharge, No Nose congestion, No Mouth pain, No Mouth swelling, No Throat pain, No Throat swelling, No Other Cardiovascular: No Chest Pain, No Palpitations, No Orthopnea, No Paroxysmal Noc. Dyspnea, No Edema, No Lt Headedness, No Other Respiratory: No Cough, No Dry, No Shortness of breath, No SOB with excertion, No Wheezing, No Hemoptysis, No Pleuritic Pain, No Sputum, No Other Gastrointestinal: Nausea, Vomiting, Abdominal Pain Genitourinary: No Dysuria, No Frequency, No Incontinence, No Hematuria, No Retention, No Other Musculoskeletal: No other, No neck pain, No shoulder pain, No arm pain, No back pain, No hand pain, No leg pain, No foot pain Skin: No Rash, No Lesions, No Jaundice, No Bruising, No Other Objective Vitals Vital Signs Date Time Temp Pulse Resp B/P (MAP) Pulse Ox O2 Delivery O2 Flow Rate FiO2 02/26/25 14:00 12 98 Room Air* 0 21 02/26/25 14:00 82 123/84 (97) 02/26/25 12:00 98.6 98.6 Intake/Output Intake and Output 02/26/25 07:00 Intake Total 3693.5 ml Output Total 1325 ml Balance 2368.5 ml Intake Oral 100 ml IV Total 3593.5 ml Output Urine Total 1325 ml General Appearance: Alert, Cooperative, No acute distress HEENT: Atraumatic, PERRLA, EOMI, Mucous membr. moist/pink Neck: Supple Lungs: Clear to auscultation, Normal air movement Cardiovascular: Regular rate, Normal S1, Normal S2, No murmurs, Gallops, Rubs Abdomen: Normal bowel sounds, Soft, No tenderness Neuro: Cranial nerves 3-12 NL Psych/Mental Status: Mental status NL Medications Current Medications Medications Dose Ordered Sig/Lamont Route Start Time Stop Time Status Last Admin Dose Admin Cefepime HCl 50 ml @ 12.5 mls/hr Q8HR IV 02/24/25 22:00 02/26/25 14:26 12.5 MLS/HR Insulin Glargine 15 units DAILY SC 02/25/25 10:00 02/26/25 09:06 15 UNITS Acetaminophen 650 mg Q6HP PRN PO 02/25/25 00:00 02/26/25 10:48 650 MG Acetaminophen/ Hydrocodone Bitart 1 tab Q4HP PRN PO 02/25/25 00:00 02/25/25 08:08 1 TAB Ondansetron HCl 4 mg Q4HP PRN IV 02/25/25 00:00 Pantoprazole Sodium 40 mg DAILY IV 02/25/25 11:45 02/26/25 09:05 40 MG Enoxaparin Sodium 40 mg DAILY SC 02/26/25 10:00 Potassium Chloride/Dextrose/ Sod Cl 1,000 ml @ 120 mls/hr Q8H20M IV 02/26/25 01:45 02/26/25 10:11 120 MLS/HR Diagnostic Test (Pha) 1 strip Q90MIN 02/26/25 04:30 Cancel Dextrose 50 ml PRN PRN IV 02/26/25 04:15 Cancel Potassium Chloride 100 ml @ 50 mls/hr Q2H IV 02/26/25 10:00 02/26/25 17:59 02/26/25 12:09 50 MLS/HR Diagnostic Test (Pha) 1 strip Q90MIN 02/26/25 13:30 02/26/25 13:36 1 STRIP Insulin Human (Reg)/Sodium Chloride 100 ml @ 1 mls/hr Q24H IV 02/26/25 12:15 02/26/25 12:19 2 MLS/HR Dextrose 50 ml PRN PRN IV 02/26/25 12:15 Laboratory Results Laboratory Tests 02/26/25 08:30 02/26/25 11:41 Chemistry Test 02/25/25 18:37 02/26/25 00:26 02/26/25 08:30 02/26/25 11:41 Calcium Level 9.4 mg/dL (8.7-10.4) 9.0 mg/dL (8.7-10.4) 9.4 mg/dL (8.7-10.4) 9.3 mg/dL (8.7-10.4) Magnesium Level 2.1 mg/dL (1.6-2.6) Urinalysis Test 02/24/25 19:40 Urine Color Colorless (Yellow) Urine Clarity Clear (Clear) Urine pH 5.0 (5.0-9.0) Urine Specific [place] 1.028 (1.001-1.035) Urine Protein Negative (Negative) Urine Ketones 4+ (Negative) H Urine Blood Negative /uL (Negative) Urine Nitrite Negative (Negative) Urine Bilirubin Negative (Negative) Urine Urobilinogen Normal mg/dL (Negative) Urine Leukocyte Esterase Negative /uL (Negative) Urine RBC <1 /hpf (0 - 3) Urine Microscopic WBC /HPF (0-3) Urine Squamous Epithelial Cells Few /hpf (<5) Urine Bacteria None seen /hpf (None Seen) Urine Glucose 4+ mg/dL (Normal) H Microbiology Microbiology Date/Time Source Procedure Growth Status 02/25/25 09:40 Nose MRSA Screen - Final Complete 02/24/25 15:55 Blood Blood Culture - Preliminary NO GROWTH AFTER 24 HOURS OF INCUBATION. 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 Hypovolemic shock likely from dehydration-resolving -given 2 bags of LR -switched to D5W half NS 150 mL/hour # Dyslipidemia -healthy lifestyle modifications RS # acute hypercapnic respiratory failure-improved # Hx of Asthma -monitor Respironics GI/Liver # intractable nausea and vomiting likely from DKA -given 2 bags of LR -switched to D5W half NS 150 mL/hour # Diffuse hepatic steatosis.-evident on CT abdominal pelvis /Kidney # BARBARA likely due to VMN -monitor lab -avoid nephrotoxic agents -given 2 bags of LR -switched to D5W half NS 150 mL/hour Endo/Metabolic # Severe dehydration from DKA # DKA # Newly diagnosed type 1 diabetes with complicated acute DKA # Severe AG metabolic acidosis # Hypokalemia 2/2 above # Pseudohyponatremia -ICU status -HB A1c more than 14 -ABG findings pH of 7.26, pCO2 of 15.4, HC03 of 6.9 and PO2 of 99 -patient was started on IV fluids, -switched to D5W half NS 150 mL/hour -patient was started on insulin drip -potassium replacement with pertinent electrolyte monitoring -repeat BMP q.6 hours [facility]K Heme-Onc # Reactive leukocytosis from DKA/dehydration--monitor lab for now Drip Insulin Drip GI PPX: Protonix VTE ppx: Lovenox Diet: Npo for now Continue current management. will wean off insulin drip if gap close. Increase lantus to 20 units daily. Plan discussed with: Patient My Orders Orders - NASEEM LOPEZ MD Procedure Category Date Status Time Potassium Chl PHA 02/26/25 In Process 20meq/100ml 10:00 Date of Service: Feb 26, 2025 Billing Provider: NASEEM LOPEZ MD Common Visit Codes: [id number] INP/OBS CARE(HIGH) NASEEM LOPEZ MD Feb 26, 2025 15:08
[2025-02-26] MEDS: InsuLIN REG 1unit/0.01ml Soln (100units/ml) SC SCH ×2 (17:16→20:21)
[2025-02-26 19:35] LABS: Chloride 105 mmol/L (98-107); Sodium 141 mmol/L (136-145)
[2025-02-26 19:36] LABS: Anion Gap 17 (5-15); Calcium 9.0 mg/dL (8.7-10.4)
[2025-02-26 19:41] LABS: BUN/Creatinine Ratio 4.9 (10.0-20.0); Blood Urea Nitrogen < 5 mg/dL (9-23); Carbon Dioxide 19 mmol/L (20-31); Glucose 168 mg/dL (74-106); Potassium 3.0 mmol/L (3.5-5.1)
[2025-02-27] VITALS (22 sets, daily range): BP systolic 111–139; BP diastolic 68–86; PULSE 78–122; RESP 11–17; TEMP 97.9–98.3; O2SAT 95–100
[2025-02-27 08:15] LABS: Chloride 104 mmol/L (98-107); Potassium 3.1 mmol/L (3.5-5.1); Sodium 140 mmol/L (136-145)
[2025-02-27 08:16] LABS: Anion Gap 14 (5-15); Calcium 9.5 mg/dL (8.7-10.4); Carbon Dioxide 22 mmol/L (20-31)
[2025-02-27 08:26] LABS: BUN/Creatinine Ratio 4.9 (10.0-20.0); Blood Urea Nitrogen < 5 mg/dL (9-23); Glucose 135 mg/dL (74-106)
[2025-02-27] MEDS: INSULIN LANTUS (GLARGINE) 1 /0.01ml (100units/ml) SC SCH (08:45)
[2025-02-27] MEDS: MAGNESIUM SULFATE 1GM/100ML 100 ML IV SCH (12:17)
--- NOTE | 2025-02-27 13:09 | DVHPN2 ---
Subjective The patient seen and examined at bedside. Off insulin drip. Complains of blurred vision Reviewed: Care Plan, H&P, Labs, Medications, Previous Orders, Radiology Changes from previous H/P or p: No Changes Eyes: No Pain, No Vision change, No Conjunctivae inflammation, No Eyelid inflammation, No Other, No Redness ENT: No Ear pain, No Ear discharge, No Nose pain, No Nose discharge, No Nose congestion, No Mouth pain, No Mouth swelling, No Throat pain, No Throat swelling, No Other Cardiovascular: No Chest Pain, No Palpitations, No Orthopnea, No Paroxysmal Noc. Dyspnea, No Edema, No Lt Headedness, No Other Respiratory: No Cough, No Dry, No Shortness of breath, No SOB with excertion, No Wheezing, No Hemoptysis, No Pleuritic Pain, No Sputum, No Other Gastrointestinal: Nausea, Vomiting, Abdominal Pain Genitourinary: No Dysuria, No Frequency, No Incontinence, No Hematuria, No Retention, No Other Musculoskeletal: No other, No neck pain, No shoulder pain, No arm pain, No back pain, No hand pain, No leg pain, No foot pain Skin: No Rash, No Lesions, No Jaundice, No Bruising, No Other Objective Vitals Vital Signs Date Time Temp Pulse Resp B/P (MAP) Pulse Ox O2 Delivery O2 Flow Rate FiO2 02/27/25 11:00 87 13 121/74 (90) 97 02/27/25 10:00 Room Air* 0 21 02/27/25 08:00 98.2 98.2 Intake/Output Intake and Output 02/27/25 07:00 Intake Total 2195.0 ml Output Total 1500 ml Balance 695.0 ml Intake Oral 250 ml IV Total 1945.0 ml Output Urine Total 1500 ml General Appearance: Alert, Oriented X3, Cooperative, No acute distress HEENT: Atraumatic, PERRLA, EOMI, Mucous membr. moist/pink Neck: Supple Lungs: Clear to auscultation, Normal air movement Cardiovascular: Regular rate, Normal S1, Normal S2, No murmurs, Gallops, Rubs Abdomen: Normal bowel sounds, Soft, No tenderness Neuro: Cranial nerves 3-12 NL Psych/Mental Status: Mental status NL Medications Current Medications Medications Dose Ordered Sig/Lamont Route Start Time Stop Time Status Last Admin Dose Admin Cefepime HCl 50 ml @ 12.5 mls/hr Q8HR IV 02/24/25 22:00 02/27/25 06:12 12.5 MLS/HR Acetaminophen 650 mg Q6HP PRN PO 02/25/25 00:00 02/26/25 10:48 650 MG Acetaminophen/ Hydrocodone Bitart 1 tab Q4HP PRN PO 02/25/25 00:00 02/25/25 08:08 1 TAB Ondansetron HCl 4 mg Q4HP PRN IV 02/25/25 00:00 Pantoprazole Sodium 40 mg DAILY IV 02/25/25 11:45 02/27/25 11:16 40 MG Enoxaparin Sodium 40 mg DAILY SC 02/26/25 10:00 02/27/25 11:17 40 MG Diagnostic Test (Pha) 1 strip Q90MIN 02/26/25 04:30 Cancel Dextrose 50 ml PRN PRN IV 02/26/25 04:15 Cancel Insulin Glargine 20 units DAILY@0800 SC 02/27/25 08:00 02/27/25 08:45 20 UNITS Dextrose 50 ml UD PRN IV 02/26/25 17:15 Diagnostic Test (Pha) 1 strip Q4H 02/26/25 20:00 02/27/25 12:20 1 STRIP Insulin Human Regular Q4H SC 02/26/25 20:00 02/27/25 08:44 2 UNITS Magnesium Sulfate/ Dextrose 100 ml @ 100 mls/hr Q1HR IV 02/27/25 13:00 02/27/25 14:59 02/27/25 12:17 100 MLS/HR Laboratory Results Laboratory Tests 02/26/25 08:30 02/27/25 07:01 Chemistry Test 02/26/25 19:16 02/27/25 07:01 Calcium Level 9.0 mg/dL (8.7-10.4) 9.5 mg/dL (8.7-10.4) Magnesium Level 1.9 mg/dL (1.6-2.6) Urinalysis Test 02/24/25 19:40 Urine Color Colorless (Yellow) Urine Clarity Clear (Clear) Urine pH 5.0 (5.0-9.0) Urine Specific [place] 1.028 (1.001-1.035) Urine Protein Negative (Negative) Urine Ketones 4+ (Negative) H Urine Blood Negative /uL (Negative) Urine Nitrite Negative (Negative) Urine Bilirubin Negative (Negative) Urine Urobilinogen Normal mg/dL (Negative) Urine Leukocyte Esterase Negative /uL (Negative) Urine RBC <1 /hpf (0 - 3) Urine Microscopic WBC /HPF (0-3) Urine Squamous Epithelial Cells Few /hpf (<5) Urine Bacteria None seen /hpf (None Seen) Urine Glucose 4+ mg/dL (Normal) H Microbiology Microbiology Date/Time Source Procedure Growth Status 02/25/25 09:40 Nose MRSA Screen - Final Complete 02/24/25 15:55 Blood Blood Culture - Preliminary NO GROWTH AFTER 48 HOURS OF INCUBATION. 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 Hypovolemic shock likely from dehydration-resolving -given 2 bags of LR -switched to D5W half NS 150 mL/hour # Dyslipidemia -healthy lifestyle modifications RS # acute hypercapnic respiratory failure-improved # Hx of Asthma -monitor Respironics GI/Liver # intractable nausea and vomiting likely from DKA -given 2 bags of LR -switched to D5W half NS 150 mL/hour # Diffuse hepatic steatosis.-evident on CT abdominal pelvis /Kidney # BARBARA likely due to VMN -monitor lab -avoid nephrotoxic agents -given 2 bags of LR -switched to D5W half NS 150 mL/hour Endo/Metabolic # Severe dehydration from DKA # DKA # Newly diagnosed type 1 diabetes with complicated acute DKA # Severe AG metabolic acidosis # Hypokalemia 2/2 above # Pseudohyponatremia -ICU status -HB A1c more than 14 -ABG findings pH of 7.26, pCO2 of 15.4, HC03 of 6.9 and PO2 of 99 -patient was started on IV fluids, -switched to D5W half NS 150 mL/hour -patient was started on insulin drip -potassium replacement with pertinent electrolyte monitoring -repeat BMP q.6 hours [facility]K Heme-Onc # Reactive leukocytosis from DKA/dehydration--monitor lab for now Drip Insulin Drip GI PPX: Protonix VTE ppx: Lovenox Diet: Carb control diet SSI and lantus. DW patient regarding to blurred vision which is a site affect of diabetes uncontrolled and new onset. Advise him to follow up with an opthalmologist as outpatient as soon as possible. Also educate patient regarding examined his foot everyday and look for cut. Plan discussed with: Patient, Other (Rn) My Orders Orders - NASEEM LOPEZ MD Procedure Category Date Status Time Insulin Lantus PHA 02/27/25 In Process (Glargine) (Lantus) 08:00 Dextrose 50% Syringe PHA 02/26/25 In Process 17:15 Consistent DIET 02/26/25 Transmitted Carb(Ccho)Diabetes Dinner Glucose Blood PHA 02/26/25 In Process (Accu-Chek Comfort 20:00 Insulin R (Human) PHA 02/26/25 In Process (Insulin R) 20:00 Magnesium Sulfate PHA 02/27/25 In Process 1gm/100ml 13:00 Date of Service: Feb 27, 2025 Billing Provider: NASEEM LOPEZ MD Common Visit Codes: [id number] INP/OBS CARE(HIGH) NASEEM LOPEZ MD Feb 27, 2025 13:09
--- NOTE | 2025-02-27 13:53 | MEDREC ---
[facility] ASP Intervention Section I [facility] ASP Intervention: Review brit of ABX 48h AIO (PLEASE CONSIDER D/C ANTIBIOTIC IN ABSENCE OF BACTERIAL INFECTION) SERGIO HDEZ PHARMACIST Feb 27, 2025 13:53
[2025-02-27] MEDS: POTASSIUM EFFERVESENT TAB 25 MEQ PO ONE (15:12)
[2025-02-27] MEDS: PANTOPRAZOLE 40 MG TAB PO SCH (19:14)
[2025-02-28] VITALS (48 sets, daily range): BP systolic 120–142; BP diastolic 63–95; PULSE 63–127; RESP 8–21; TEMP 96.7–98.4; O2SAT 97–100
[2025-02-28 04:03] LABS: Hematocrit 42.4 % (41.0-53.0); Hemoglobin 14.6 g/dL (13.5-17.5); Mean Corpuscular Hemoglobin 29.9 pg (28.0-32.0); Mean Corpuscular Volume 86.9 fL (80.0-100.0); Nucleated Red Blood Cells % 0.1 %
[2025-02-28 04:18] LABS: Alanine Aminotransferase 12 U/L (7-40); Albumin 3.9 g/dL (3.2-4.8); Alkaline Phosphatase 106 U/L (46-116); Anion Gap 13 (5-15); BUN/Creatinine Ratio 5.7 (10.0-20.0); Bilirubin, Total 1.1 mg/dL (0.2-1.0); Calcium 9.2 mg/dL (8.7-10.4); Carbon Dioxide 27 mmol/L (20-31); Chloride 99 mmol/L (98-107); Sodium 139 mmol/L (136-145); Total Protein 6.9 g/dL (5.7-8.2)
[2025-02-28 04:26] LABS: Blood Urea Nitrogen 5 mg/dL (9-23); Glucose 123 mg/dL (74-106); Potassium 2.7 mmol/L (3.5-5.1)
[2025-02-28] MEDS: POTASSIUM EFFERVESENT TAB 25 MEQ PO ONE (05:56)
--- NOTE | 2025-02-28 11:52 | DVHPN2 ---
Subjective The patient seen and examined at bedside. Off insulin drip. Complains of blurred vision Reviewed: Care Plan, H&P, Labs, Medications, Previous Orders, Radiology Changes from previous H/P or p: No Changes Eyes: No Pain, No Vision change, No Conjunctivae inflammation, No Eyelid inflammation, No Other, No Redness ENT: No Ear pain, No Ear discharge, No Nose pain, No Nose discharge, No Nose congestion, No Mouth pain, No Mouth swelling, No Throat pain, No Throat swelling, No Other Cardiovascular: No Chest Pain, No Palpitations, No Orthopnea, No Paroxysmal Noc. Dyspnea, No Edema, No Lt Headedness, No Other Respiratory: No Cough, No Dry, No Shortness of breath, No SOB with excertion, No Wheezing, No Hemoptysis, No Pleuritic Pain, No Sputum, No Other Gastrointestinal: Nausea, Vomiting, Abdominal Pain Genitourinary: No Dysuria, No Frequency, No Incontinence, No Hematuria, No Retention, No Other Musculoskeletal: No other, No neck pain, No shoulder pain, No arm pain, No back pain, No hand pain, No leg pain, No foot pain Skin: No Rash, No Lesions, No Jaundice, No Bruising, No Other Objective Vitals Vital Signs Date Time Temp Pulse Resp B/P (MAP) Pulse Ox O2 Delivery O2 Flow Rate FiO2 02/28/25 10:00 13 99 Room Air* 0 21 02/28/25 10:00 88 02/28/25 08:45 02/28/25 07:45 98.3 98.3 Intake/Output Intake and Output 02/28/25 07:00 Intake Total 1005.0 ml Output Total 725 ml Balance 280.0 ml Intake Oral 780 ml IV Total 225.0 ml Output Urine Total 725 ml # Voids 2 # Bowel Movements 2 General Appearance: Alert, Oriented X3, Cooperative, No acute distress HEENT: Atraumatic, PERRLA, EOMI, Mucous membr. moist/pink Neck: Supple Lungs: Clear to auscultation, Normal air movement Cardiovascular: Regular rate, Normal S1, Normal S2, No murmurs, Gallops, Rubs Abdomen: Normal bowel sounds, Soft, No tenderness Neuro: Cranial nerves 3-12 NL Psych/Mental Status: Mental status NL Medications Current Medications Medications Dose Ordered Sig/Lamont Route Start Time Stop Time Status Last Admin Dose Admin Cefepime HCl 50 ml @ 12.5 mls/hr Q8HR IV 02/24/25 22:00 02/28/25 05:56 12.5 MLS/HR Acetaminophen 650 mg Q6HP PRN PO 02/25/25 00:00 02/26/25 10:48 650 MG Acetaminophen/ Hydrocodone Bitart 1 tab Q4HP PRN PO 02/25/25 00:00 02/25/25 08:08 1 TAB Ondansetron HCl 4 mg Q4HP PRN IV 02/25/25 00:00 Enoxaparin Sodium 40 mg DAILY SC 02/26/25 10:00 02/28/25 10:25 40 MG Diagnostic Test (Pha) 1 strip Q90MIN 02/26/25 04:30 Cancel Dextrose 50 ml PRN PRN IV 02/26/25 04:15 Cancel Insulin Glargine 20 units DAILY@0800 SC 02/27/25 08:00 02/28/25 08:44 20 UNITS Dextrose 50 ml UD PRN IV 02/26/25 17:15 Diagnostic Test (Pha) 1 strip Q4H 02/26/25 20:00 02/28/25 08:35 1 STRIP Insulin Human Regular Q4H SC 02/26/25 20:00 02/28/25 08:39 4 UNITS Pantoprazole Sodium 40 mg BID@0600,1700 PO 02/27/25 17:00 02/28/25 05:57 40 MG Laboratory Results Laboratory Tests 02/28/25 03:09 Chemistry Test 02/28/25 03:09 Albumin 3.9 g/dL (3.2-4.8) Calcium Level 9.2 mg/dL (8.7-10.4) Total Protein 6.9 g/dL (5.7-8.2) LFT Test 02/28/25 03:09 Alanine Aminotransferase (ALT) 12 U/L (7-40) Alkaline Phosphatase 106 U/L (46-116) Aspartate Amino Transferase (AST) 14 U/L (13-40) Total Bilirubin 1.1 mg/dL (0.2-1.0) H Urinalysis Test 02/24/25 19:40 Urine Color Colorless (Yellow) Urine Clarity Clear (Clear) Urine pH 5.0 (5.0-9.0) Urine Specific [place] 1.028 (1.001-1.035) Urine Protein Negative (Negative) Urine Ketones 4+ (Negative) H Urine Blood Negative /uL (Negative) Urine Nitrite Negative (Negative) Urine Bilirubin Negative (Negative) Urine Urobilinogen Normal mg/dL (Negative) Urine Leukocyte Esterase Negative /uL (Negative) Urine RBC <1 /hpf (0 - 3) Urine Microscopic WBC /HPF (0-3) Urine Squamous Epithelial Cells Few /hpf (<5) Urine Bacteria None seen /hpf (None Seen) Urine Glucose 4+ mg/dL (Normal) H Microbiology Microbiology Date/Time Source Procedure Growth Status 02/25/25 09:40 Nose MRSA Screen - Final Complete 02/24/25 15:55 Blood Blood Culture - Preliminary NO GROWTH AFTER 72 HOURS OF INCUBATION. 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 Hypovolemic shock likely from dehydration-resolving -given 2 bags of LR -switched to D5W half NS 150 mL/hour # Dyslipidemia -healthy lifestyle modifications RS # acute hypercapnic respiratory failure-improved # Hx of Asthma -monitor Respironics GI/Liver # intractable nausea and vomiting likely from DKA -given 2 bags of LR -switched to D5W half NS 150 mL/hour # Diffuse hepatic steatosis.-evident on CT abdominal pelvis /Kidney # BARBARA likely due to VMN -monitor lab -avoid nephrotoxic agents -given 2 bags of LR -switched to D5W half NS 150 mL/hour Endo/Metabolic # Severe dehydration from DKA # DKA # Newly diagnosed type 1 diabetes with complicated acute DKA # Severe AG metabolic acidosis # Hypokalemia 2/2 above # Pseudohyponatremia -ICU status -HB A1c more than 14 -ABG findings pH of 7.26, pCO2 of 15.4, HC03 of 6.9 and PO2 of 99 -patient was started on IV fluids, -switched to D5W half NS 150 mL/hour -patient was started on insulin drip -potassium replacement with pertinent electrolyte monitoring -repeat BMP q.6 hours [facility] Heme-Onc # Reactive leukocytosis from DKA/dehydration--monitor lab for now Drip Insulin Drip GI PPX: Protonix VTE ppx: Lovenox Diet: Carb control diet SSI and lantus. DW patient regarding to blurred vision which is a site affect of diabetes uncontrolled and new onset. Advise him to follow up with an opthalmologist as outpatient as soon as possible. Also educate patient regarding examined his foot everyday and look for cut. Plan discussed with: Patient My Orders Orders - NASEEM LOPEZ MD Procedure Category Date Status Time Pantoprazole Tablet PHA 02/27/25 In Process (Protonix Tablet) 17:00 Date of Service: Feb 28, 2025 Billing Provider: NASEEM LOPEZ MD Common Visit Codes: [id number] DISCH DAY >30min NASEEM LOPEZ MD Feb 28, 2025 11:52
[2025-03-01 05:00] VITALS: BP 119/69; PULSE 78; RESP 16; TEMP 97.9; O2SAT 98
[2025-03-01 09:00] VITALS: BP 104/72; PULSE 71; RESP 18; TEMP 97.6; O2SAT 100
[2025-03-01] MEDS ORDERED: INSU50IN6 SC (11:32)
[2025-03-01] MEDS ORDERED: INSU-450 XX (11:32)
[2025-03-01] MEDS ORDERED: INSUINJ37 SC (11:32)
[2025-03-01] MEDS ORDERED: BLOO-329 XX (11:35)
[2025-03-01] MEDS ORDERED: GLUC1TES63 VI (11:35)
[2025-03-01] MEDS ORDERED: LANC-336 XX (11:35)
--- NOTE | 2025-03-01 11:37 | DVHDS2 ---
Discharge Summary Date of Admission Feb 24, 2025 at 23:54 Date of Discharge: Mar 01, 2025 Admitting Diagnosis # ? Hypovolemic shock likely from dehydration-resolving # Dyslipidemia # acute hypercapnic respiratory failure-improved # Hx of Asthma # intractable nausea and vomiting likely from DKA # Diffuse hepatic steatosis.-evident on CT abdominal pelvis # BARBARA likely due to VMN # Severe dehydration from DKA # DKA # Newly diagnosed type 1 diabetes with complicated acute DKA # Severe AG metabolic acidosis # Hypokalemia 2/2 above # Pseudohyponatremia # Reactive leukocytosis from DKA/dehydration--monitor lab for now Labs/Diagnostic Data: Laboratory Results Test 03/01/25 08:18 02/28/25 11:45 02/28/25 03:09 02/27/25 07:01 POC Glucose 160 mg/dl (70-106) Potassium Level 3.9 mmol/L (3.5-5.1) White Blood Count 6.3 10^3/uL (4.4-10.8) Red Blood Count 4.88 10^6/uL (4.5-5.90) Hemoglobin 14.6 g/dL (13.5-17.5) Hematocrit 42.4 % (41.0-53.0) Mean Corpuscular Volume 86.9 fL (80.0-100.0) Mean Corpuscular Hemoglobin 29.9 pg (28.0-32.0) Mean Corpuscular Hemoglobin Concent 34.4 g/dL (32.0-36.0) Red Cell Distribution Width 14.6 % (11.8-14.3) Platelet Count 113 10^3/uL (140-450) Mean Platelet Volume 11.9 fL (6.9-10.8) Neutrophils (%) (Auto) 51.8 % (37.0-80.0) Lymphocytes (%) (Auto) 37.1 % (10.0-50.0) Monocytes (%) (Auto) 9.8 % (0.0-12.0) Eosinophils (%) (Auto) 0.7 % (0.0-7.0) Basophils (%) (Auto) 0.6 % (0.0-2.0) Neutrophils # (Auto) 3.3 10 ^3/uL (1.6-8.6) Lymphocytes # (Auto) 2.4 10 ^3/uL (0.4-5.4) Monocytes # (Auto) 0.6 10 ^3/uL (0-1.3) Eosinophils # (Auto) 0 10 ^3/uL (0-0.8) Basophils # (Auto) 0 10 ^3/uL (0-0.2) Nucleated Red Blood Cells 0.1 % Sodium Level 139 mmol/L (136-145) Chloride Level 99 mmol/L (98-107) Carbon Dioxide Level 27 mmol/L (20-31) Anion Gap 13 (5-15) Blood Urea Nitrogen 5 mg/dL (9-23) Creatinine 0.87 mg/dL (0.700-1.30) Glomerular Filtration Rate Calc 124 mL/min (>90) BUN/Creatinine Ratio 5.7 (10.0-20.0) Serum Glucose 123 mg/dL (74-106) Calcium Level 9.2 mg/dL (8.7-10.4) Total Bilirubin 1.1 mg/dL (0.2-1.0) Aspartate Amino Transferase (AST) 14 U/L (13-40) Alanine Aminotransferase (ALT) 12 U/L (7-40) Alkaline Phosphatase 106 U/L (46-116) Total Protein 6.9 g/dL (5.7-8.2) Albumin 3.9 g/dL (3.2-4.8) Magnesium Level 1.9 mg/dL (1.6-2.6) Test 02/25/25 05:38 02/25/25 00:00 02/24/25 19:40 02/24/25 18:57 Hemoglobin A1c > 14.0 % A1C (<5.7) Triglycerides Level 693 mg/dL (< 150) Cholesterol Level 344 mg/dL (< 200) LDL Cholesterol mg/dL (< 100) HDL Cholesterol 32 mg/dL (40-59) Urine Color Colorless (Yellow) Urine Clarity Clear (Clear) Urine pH 5.0 (5.0-9.0) Urine Specific [place] 1.028 (1.001-1.035) Urine Protein Negative (Negative) Urine Ketones 4+ (Negative) Urine Blood Negative /uL (Negative) Urine Nitrite Negative (Negative) Urine Bilirubin Negative (Negative) Urine Urobilinogen Normal mg/dL (Negative) Urine Leukocyte Esterase Negative /uL (Negative) Urine RBC <1 /hpf (0 - 3) Urine Microscopic WBC /HPF (0-3) Urine Squamous Epithelial Cells Few /hpf (<5) Urine Bacteria None seen /hpf (None Seen) Urine Glucose 4+ mg/dL (Normal) Blood Gas Specimen Type Arterial Blood Gas Sample Site Left brachial Blood Gas Patient Temperature 37.0 Arterial Blood Date Drawn [id number] Arterial Blood pH 7.267 (7.350-7.450) Arterial Blood Partial Pressure CO2 15.4 mmHg (35.0-48.0) Arterial Blood Partial Pressure O2 99.0 mmHg (83.0-108.0) Arterial Blood HCO3 6.9 mmol/L (21.0-28.0) Arterial Blood Oxygen Saturation 97.5 % (94.0-98.0) Arterial Blood Base Excess -16.8 mmol/L (-2.0-3.0) Arterial Blood Oxyhemoglobin 96.5 % (94.0-98.0) Arterial Blood Carboxyhemoglobin 0.2 % (0.5-1.5) Arterial Blood Methemoglobin 0.8 % (0.0-1.5) Miles Test N/a Blood Gas Total Hemoglobin 17.40 g/dL (13.5-17.5) Blood Gas Modality Room air FiO2 % 21.0 Blood Gas Critical Value Read Back Yes Blood Gas Notified Whom Blood Gas Notified Time [id number] Blood Gas Notified By Test 02/24/25 18:25 02/24/25 15:55 Lactic Acid Level 2.9 mmol/L (0.4-2.0) Phosphorus Level 7.5 mg/dL (2.4-5.1) Troponin I High Sensitivity < 3 ng/L (</=54) Beta-Hydroxybutyric Acid > 4.500 mmol/L (< 0.4) Prothrombin Time 10.3 sec (9.3-11.8) Prothrombin Time INR 0.97 (0.9-1.15) Activated Partial Thromboplast Time 27.6 SEC (24.5-34.5) Serum Osmolality 332 mOsm/kg (278-298) B-Type Natriuretic Peptide 9.71 pg/mL (0-100) Lipase 37 U/L (12-53) Other Laboratory Tests 02/28/25 11:45 02/28/25 03:09 Brief Hx & Hospital Course: This is a 24 years old male with past medical history of hypertension, asthma, noncompliant on medication, newly diagnosis diabetes type 1 come to emergency department because extreme fatigue, acute epigastric pain associated with dry mouth and nausea and vomiting. The patient has started feeling fatigue and nausea and vomiting for couple day. Upon the arriving to the hospital, the patient's blood glucose was 549 with anion gap of 31. Hemoglobin A1c greater than 14. Beta hydroxybutyric acid greater than 4.5. The ABG showed pH of 7.26, pCO2 is 15.4, bicarb is 6.9, saturation oxygen is 99 consistent with severe metabolic acidosis with elevation of anion gap due to DKA. The patient did not know he had diabetes. The patient was given insulin drip and subsequently able to switch to sliding scale insulin and Lantus. The patient was given IV fluid, potassium replacement. The patient was downgrade from ICU to [facility] floor. The patient tolerated new regimen of insulin. Today his blood glucose better controlled. I am going to discharge him home. Advised him to follow up with primary care physician 1-2 weeks. Follow up with electronics mechanic per schedule. Activity as tolerated. Diet low carbohydrate diet. Physical exam: HEENT: Normocephalic atraumatic pupils equal react to light and accommodation. Extraocular muscles intact, conjunctiva pink, oropharynx moist, no thrush, no exudate. Lymphatic: No lymphadenopathy Cardiovascular exam: S1, S2 was heard. No murmurs, rubs, gallops Lung: Clear on auscultation bilaterally, no wheeze, rale, rhonchi. GI: Abdominal soft, nondistended, nontenderness, positive bowel sounds. Extremity: No crepitus, cyanosis, edema. Pedal pulses present bilateral. Full range of motion. Skin: Normal turgor, no rash. Psych: Alert, oriented x3. Neurology: No focal deficits, cranial nerve II to XII grossly intact. This medical document was created using an electronic medical record system with [employer] computerized dictation system. Although this document has been carefully reviewed, there may still be some phonetic and typographical errors. These areas are purely typographical due to imperfections of the software programs, and do not reflect any compromise in the patient's medical care. Condition at Discharge: Stable Final Diagnosis/Problems List # ? Hypovolemic shock likely from dehydration-resolving # Dyslipidemia # acute hypercapnic respiratory failure-improved # Hx of Asthma # intractable nausea and vomiting likely from DKA # Diffuse hepatic steatosis.-evident on CT abdominal pelvis # BARBARA likely due to VMN # Severe dehydration from DKA # DKA # Newly diagnosed type 1 diabetes with complicated acute DKA # Severe AG metabolic acidosis # Hypokalemia 2/2 above # Pseudohyponatremia # Reactive leukocytosis from DKA/dehydration--monitor lab for now Discharge Disposition: Home Discharge Instruct/Medications Diet: Consistent carbohydrate Activity: No Restrictions, As Tolerated Follow Up/Referral: pcp 1-2 weeks electronics mechanic per schedule Opthalmologist per schedule. Scheduled Glucose Blood (Glucose Meter Test Strips), 100 PHILIPPE AC Insulin Glargine (Lantus), 25 UNIT SC DAILY Insulin Lispro (Human) (Humalog), 5 UNIT SC AC Durable Medical Equipment Blood Glucose Monitoring Suppl (Blood Glucose Monitoring), MIS XX AC, (DME) Insulin Syringe/Needle U-100 (Bd Insulin Syringe Ultraf), SYR XX 4 TIMES PER DAY, (DME) Lancets (Advocate Lancets), UNIT XX AC, (DME) Discharge Statement: "Patient was advised to return to the ER or call 911 if any headaches, dizziness, shortness of breath, chest pain, abdominal pain, bleeding, fevers, or worsening of medical condition. Patient was counseled about treatment plan, medications, possible side effects, patientverbalized understanding. All questions were answered to the best of my ability. This discharge took greater then 30 minutes in planning, reviewing documentation, counseling the patient, and discussing with other team members." ASSESSMENT ASSESSMENT Assessment DKA Date of Service: Mar 01, 2025 Billing Provider: NASEEM LOPEZ MD Common Visit Codes: 86358-SMO/OBS DISCH DAY >30min NASEEM LOPEZ MD Mar 01, 2025 11:37
[2025-03-01 12:23] VITALS: BP 104/72; PULSE 71; RESP 18; TEMP 96.6; O2SAT 100
[2025-03-01 13:00] VITALS: BP_SYST 66; PULSE 62; RESP 17; TEMP 97.9; O2SAT 95
[2025-03-01] MEDS ORDERED: INSLANTI SC (17:14)
[2025-03-01] MEDS ORDERED: INSLISPI SC ×2 (17:20)
[2025-03-01] MEDS ORDERED: INSU1MIS44 XX (17:20)
== END 2025-03-01 14:49 | disposition home or self-care (01) | DRG 420 ==
LOC: ER 15:01 → OVERFLOW 23:54 → ICU WEST 02-25 08:31 → WEST WING 02-28 17:26
PROVIDERS: ADMIT Internal Medicine; ATTEND Internal Medicine
DX: E10.10 Type 1 diabetes mellitus with ketoacidosis without coma (principal); J96.02 Acute respiratory failure with hypercapnia; N17.0 Acute kidney failure with tubular necrosis; R65.11 Systemic inflammatory response syndrome (SIRS) of non-infectious origin with acute organ dysfunction; R57.1 Hypovolemic shock; K76.0 Fatty (change of) liver, not elsewhere classified; J45.909 Unspecified asthma, uncomplicated; I10 Essential (primary) hypertension; E86.0 Dehydration; E78.5 Hyperlipidemia, unspecified; E87.6 Hypokalemia
CPT/HCPCS: 36415; 36600; 71045; 74176; 80048; 80053; 80061; 81001; 82010; 82805; 82962; 83036; 83605; 83690; 83735; 83880; 83930; 84100; 84132; 84484; 85025; 85610; 85730; 87040; 87081; 93005; 96361; 96374; 96375; 99291; G0378; J1815; J2405; J2470; J3480